=== PATIENT | male | born 1970 | race Caucasian/White ===

== ENCOUNTER 2022-09-06 06:25 | Emergency (ER) | payer OTHER, MEDICAID, SELFPAY ==
[2022-09-06] VITALS (10 sets, daily range): BP systolic 151–176; BP diastolic 89–109; PULSE 86–111; RESP 14–20; TEMP 36.4; O2SAT 93–96; BMI 22.4
--- NOTE | 2022-09-06 06:32 | DI.RAD.S_ITS ---
PROCEDURE: XR CHEST 1V INDICATIONS: eval for PNA TECHNIQUE: One view of the chest was acquired. COMPARISON: None. FINDINGS: Surgical changes and devices: None. Lungs and pleura: Lungs are clear. No pleural effusions or pneumothorax. Mediastinum: Mediastinal contours appear normal. Heart size is normal. Bones and chest wall: No suspicious bony lesions. Overlying soft tissues appear unremarkable. IMPRESSION: No acute cardiopulmonary process. Agree with preliminary report. Dictated by: Hieu Buchanan M.D. on 09/06/2022 at 7:53 Approved by: Hieu Buchanan M.D. on 09/06/2022 at 7:53
--- NOTE | 2022-09-06 07:15 | ED_ITS ---
HPI - SOB/Dyspnea General Chief Complaint: Shortness of Breath/Dyspnea Stated Complaint: possible phemonia Time Seen by Provider: 09/06/22 06:32 Source: patient Mode of arrival: Ambulatory Limitations: no limitations History of Present Illness HPI Narrative: Patient here for shortness of breath ongoing for the past 2 weeks. Patient was treated for pneumonia in [facility] about 4-5 weeks ago. Was sent home on potassium pills and 4 additional days of antibiotics. Patient states he was there about 4 days for dual treatment of alcohol withdrawal as well as pneumonia. Patient denies any previous history of heart attack strokes or diabetes or asthma or lung problems. No recent long travel or immobilization otherwise. 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 After being treated for pneumonia he was discharged and he came over here about 4 weeks ago to work on the boat to prepare for voids to [place]. Unknown sick contacts. 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 Has had fever and chills. No hematemesis or hemoptysis. Patient is a smoker. Blood pressure and heart rate noted. States he is had a stress test in the past and his source of tachycardia was due to arrhythmia. He was on lisinopril for blood pressure but is allergic because it caused him throat swelling, has not been on any blood pressure medications since then, 2 years ago. Denies any chest pain. No history of blood clots in legs or lungs before. Patient was arranged for follow-up in [facility] after his hospitalization but he informed them he would be here in [facility]. Related Data Previous Rx's Medication Instructions Recorded albuterol sulfate 90 mcg/actuation 2 inh inhalation QID PRN shortness 09/06/22 aerosol inhaler (Ventolin HFA) of breath or wheezing #6.7 grams amlodipine 5 mg tablet 5 mg PO DAILY #30 tabs 09/06/22 Allergies Allergy/AdvReac Type Severity Reaction Status Date / Time lisinopril Allergy Severe Anaphylaxis Verified 09/06/22 07:46 Review of Systems Review of Systems Narrative: GENERAL: Positive chills, fatigue, malaise, fever, sweats. HEENT: negative sinus pain, ear pain, sore throat RESPIRATORY: Positive dyspnea, cough CARDIOVASCULAR: negative chest pain, palpitations GASTROINTESTINAL: negative nausea, vomiting, abdominal pain : negative dysuria, frequency, hematuria MUSCULOSKELETAL: negative muscle or bony pain SKIN: negative rash, skin lesions NEUROLOGIC: negative weakness, numbness ROS Unobtainable: All systems reviewed & are unremarkable except as noted in HPI and below Patient History Social History Smoking Status: Current every day smoker Smoking Status: Current every day smoker tobacco type: cigarettes alcohol intake frequency: 3 or more drinks per day Alcohol type: beer Substance Use Type: marijuana Exam Narrative Exam Narrative: GENERAL: in no distress, not toxic not dyspneic HEAD: Normocephalic. EYES: Pupils equal round ENT: Mucous membranes moist. NECK: Trachea midline. CARDIOVASCULAR: Tachycardia with Regular rate and rhythm without murmurs RESPIRATORY: Rhonchi right base, no rales, otherwise speaking full sentences. No wheezing. Left lung clear. In no respiratory distress GASTROINTESTINAL: Abdomen soft, non-tender EXTREMITIES: No gross deformities. BACK: No flank tenderness. NEURO: AOx4. SKIN: Warm and dry PSYCH: Not anxious, is cooperative Initial Vital Signs Initial Vital Signs: Vital Signs Temperature 97.5 F L 09/06/22 06:40 Pulse Rate 110 H 09/06/22 06:40 Respiratory Rate 20 09/06/22 06:40 Blood Pressure 176/109 H 09/06/22 06:40 Pulse Oximetry 96 09/06/22 06:40 Oxygen Delivery Method 09/06/22 06:40 Course Orders Ordered: Discontinued Medications Albuterol (Albuterol 2.5 Mg/3 Ml Neb (Adult)) 2.5 mg INH NOW ONE Stop: 09/06/22 08:34 Last Admin: 09/06/22 08:40 Dose: 2.5 mg Documented By: TEOFILO Albuterol (Albuterol Hfa Prepack) 1 box MISC SEEINSTR ONE Stop: 09/06/22 08:34 Last Admin: 09/06/22 08:40 Dose: 1 box Documented By: TEOFILO Amlodipine Besylate (Amlodipine 5 Mg Tablet) 5 mg PO NOW ONE Stop: 09/06/22 07:29 Last Admin: 09/06/22 08:08 Dose: 5 mg Documented By: ROSALINDA Sodium Chloride (Normal Saline 0.9%) 500 mls @ 1,000 mls/hr IV BOLUS ONE Stop: 09/06/22 09:04 Last Infusion: 09/06/22 10:42 Dose: 0 mls/hr Documented By: Admin: 09/06/22 08:39 Dose: 1,000 mls/hr Documented By: ROSALINDA Vital Signs Vital signs: Vital Signs - 8 hr 09/06/22 06:40 09/06/22 06:41 09/06/22 07:00 Temperature 97.5 F L Pulse Rate 110 H 111 H 101 H Respiratory Rate 20 Blood Pressure 176/109 H Pulse Oximetry 96 96 94 Oxygen Delivery Method Room Air 09/06/22 07:42 09/06/22 07:42 09/06/22 08:00 Temperature Pulse Rate 95 H Respiratory Rate Blood Pressure 151/98 H 154/96 H Pulse Oximetry 96 Oxygen Delivery Method 09/06/22 08:00 09/06/22 08:40 09/06/22 08:30 Temperature Pulse Rate 90 89 Respiratory Rate 14 Blood Pressure 166/101 H Pulse Oximetry 96 94 Oxygen Delivery Method Room Air 09/06/22 08:30 09/06/22 09:00 09/06/22 09:00 Temperature Pulse Rate 86 92 H Respiratory Rate 18 18 Blood Pressure 169/98 H Pulse Oximetry 95 94 Oxygen Delivery Method 09/06/22 09:30 09/06/22 09:30 09/06/22 10:00 Temperature Pulse Rate 90 Respiratory Rate 18 Blood Pressure 154/99 H 159/89 H Pulse Oximetry 93 Oxygen Delivery Method 09/06/22 10:00 Temperature Pulse Rate 92 H Respiratory Rate 17 Blood Pressure Pulse Oximetry 93 Oxygen Delivery Method MDM - SOB/Dyspnea Lab Data 09/06/22 07:15 09/06/22 07:15 Labs: Lab Results 09/06/22 09/06/22 09/06/22 Range/Units 07:15 07:15 07:15 WBC 9.0 (4.5-11.0) X10^3/uL RBC 4.91 (4.5-5.9) X10^6/uL Hgb 17.7 H (13.5-17.5) g/dL Hct 49.6 (41-53) % MCV 101.0 H (80-100) fL MCH 36.0 H (26-34) PG MCHC 35.7 (30-36) % RDW 13.0 (11.6-14.8) % Plt Count 168 (150-400) X10^3/uL Neut % (Auto) 62.6 (50-75) % Lymph % (Auto) 27.2 (25-40) % Scott % (Auto) 7.7 (3-14) % Eos % (Auto) 1.9 L (2-4) % Baso % (Auto) 0.6 (0-2) % Neut # (Auto) 5600 (7803-7624) /uL Lymph # (Auto) 2500 (8053-7429) /uL Scott # (Auto) 700 (0-900) /uL Eos # (Auto) 200 (0-450) /uL Baso # (Auto) 100 (0-100) /uL Sodium 137 (137-145) mmol/L Potassium 3.7 (3.4-5.1) mmol/L Chloride 99 (98-107) mmol/L Carbon Dioxide 29 (22-32) mmol/L BUN 14 (9-20) mg/dL Creatinine 0.64 L (0.66-1.25) mg/dL Estimated GFR > 60 (>60) mL/min BUN/Creatinine Ratio 21.9 (6-22) Glucose 128 H (70-100) mg/dL Lactate (0.7-2.1) mmol/L Calcium 9.2 (8.4-10.2) mg/dL Total Bilirubin 0.6 (0.2-1.3) mg/dL AST 72 H (17-59) IU/L ALT 82 H (<50) IU/L Alkaline Phosphatase 79 (38-126) U/L Total Creatine Kinase 46 L (55-170) U/L CK-MB (CK-2) TNP CK-MB (CK-2) Rel Index TNP Troponin I < 0.012 (0.01-0.034) ng/mL NT-Pro-B Natriuret Pep 77 (<125) pg/mL Total Protein 7.7 (6.3-8.2) g/dL Albumin 4.2 (3.5-5.0) g/dL Globulin 3.5 (1.7-4.1) g/dL Albumin/Globulin Ratio 1.2 (1.0-2.8) Procalcitonin (<0.5) ng/mL Chlamy pneumoniae PCR (Not Detect) Adenovirus (PCR) (Not Detect) B. pertussis DNA (PCR) (Not Detecte) B.parapertussis DNA PCR (Not Detecte) Coronavirus OC43 (PCR) (Not Detect) Coronavirus HKU1 (PCR) (Not Detect) Coronavirus 229E (PCR) (Not Detect) SARS-CoV-2 (PCR) (Not Detecte) Coronavirus NL63 (PCR) (Not Detect) Human Metapneumovir PCR (Not Detect) Influenza Type A (PCR) (Not Detect) Influenza Type B (PCR) (Not Detect) M. pneumoniae (PCR) (Not Detect) Parainfluenza 1 (PCR) (Not Detect) Parainfluenza 2 (PCR) (Not Detect) Parainfluenza 3 (PCR) (Not Detect) Parainfluenza 4 (PCR) (Not Detect) RSV (PCR) (Not Detect) Entero/Rhino (PCR) (Not Detect) 09/06/22 09/06/22 09/06/22 Range/Units 07:15 07:15 07:15 WBC (4.5-11.0) X10^3/uL RBC (4.5-5.9) X10^6/uL Hgb (13.5-17.5) g/dL Hct (41-53) % MCV (80-100) fL MCH (26-34) PG MCHC (30-36) % RDW (11.6-14.8) % Plt Count (150-400) X10^3/uL Neut % (Auto) (50-75) % Lymph % (Auto) (25-40) % Scott % (Auto) (3-14) % Eos % (Auto) (2-4) % Baso % (Auto) (0-2) % Neut # (Auto) (2907-2035) /uL Lymph # (Auto) (7964-3334) /uL Scott # (Auto) (0-900) /uL Eos # (Auto) (0-450) /uL Baso # (Auto) (0-100) /uL Sodium (137-145) mmol/L Potassium (3.4-5.1) mmol/L Chloride (98-107) mmol/L Carbon Dioxide (22-32) mmol/L BUN (9-20) mg/dL Creatinine (0.66-1.25) mg/dL Estimated GFR (>60) mL/min BUN/Creatinine Ratio (6-22) Glucose (70-100) mg/dL Lactate 1.2 (0.7-2.1) mmol/L Calcium (8.4-10.2) mg/dL Total Bilirubin (0.2-1.3) mg/dL AST (17-59) IU/L ALT (<50) IU/L Alkaline Phosphatase (38-126) U/L Total Creatine Kinase (55-170) U/L CK-MB (CK-2) CK-MB (CK-2) Rel Index Troponin I (0.01-0.034) ng/mL NT-Pro-B Natriuret Pep (<125) pg/mL Total Protein (6.3-8.2) g/dL Albumin (3.5-5.0) g/dL Globulin (1.7-4.1) g/dL Albumin/Globulin Ratio (1.0-2.8) Procalcitonin 0.07 (<0.5) ng/mL Chlamy pneumoniae PCR Not detected (Not Detect) Adenovirus (PCR) Not detected (Not Detect) B. pertussis DNA (PCR) Not detected (Not Detecte) B.parapertussis DNA PCR Not detected (Not Detecte) Coronavirus OC43 (PCR) Not detected (Not Detect) Coronavirus HKU1 (PCR) Not detected (Not Detect) Coronavirus 229E (PCR) Not detected (Not Detect) SARS-CoV-2 (PCR) Not detected (Not Detecte) Coronavirus NL63 (PCR) Not detected (Not Detect) Human Metapneumovir PCR Not detected (Not Detect) Influenza Type A (PCR) Not detected (Not Detect) Influenza Type B (PCR) Not detected (Not Detect) M. pneumoniae (PCR) Not detected (Not Detect) Parainfluenza 1 (PCR) Not detected (Not Detect) Parainfluenza 2 (PCR) Not detected (Not Detect) Parainfluenza 3 (PCR) Not detected (Not Detect) Parainfluenza 4 (PCR) Not detected (Not Detect) RSV (PCR) Not detected (Not Detect) Entero/Rhino (PCR) Not detected (Not Detect) Imaging Data Chest x-ray: Radiologist's Impression: [address] [address] XRay Report Signed Patient: Shashank Byrd MR#: [id number] : 1970 Acct:[id number] Age/Sex: 52 / M Date of Service: 09/06/22 Loc: ED Accession Number: [id number] ?? Procedure: XR chest 1V Ordering Provider: Ady Laura D.O. PROCEDURE:? XR CHEST 1V ? INDICATIONS:? eval for PNA ? TECHNIQUE:? One view of the chest was acquired.? ? COMPARISON:? None. ? FINDINGS:? ? Surgical changes and devices:? None.? ? Lungs and pleura:? Lungs are clear.? No pleural effusions or pneumothorax.? ? Mediastinum:? Mediastinal contours appear normal.? Heart size is normal.? ? Bones and chest wall:? No suspicious bony lesions.? Overlying soft tissues appea r unremarkable.? ? IMPRESSION:? No acute cardiopulmonary process. ? Agree with preliminary report.? ? ? Dictated by: Hieu Buchanan M.D. on 09/06/2022 at 7:53 ? ? Approved by: Hieu Buchanan M.D. on 09/06/2022 at 7:53 ? CT scan - chest: Radiologist's Impression: [address] [address] [address] Scan Report Signed Patient: Shashank Byrd MR#: [id number] : 1970 Acct:[id number] Age/Sex: 52 / M Date of Service: 09/06/22 Loc: ED Accession Number: [id number] ?? Procedure: CT angio chest PE protocol Ordering Provider: Alejandro Evans MD PROCEDURE:? CT ANGIO CHEST PE PROTOCOL ? INDICATIONS:? shortness of breath ? TECHNIQUE:? After the administration of intravenous contrast, 2 mm thick sections acquired from the pulmonary apices to the posterior costophrenic angles.? 3-dimensional maximum intensity projection (MIP) coronal and sagittal reformats were then acquired through the thorax.? For radiation dose reduction, the following was used:? automated exposure control, adjustment of mA and/or kV according to patient size.? ? COMPARISON:? None. ? FINDINGS:? Image quality:? Excellent.? ? Pulmonary arteries:? Pulmonary arteries are mild prominent in size, and demonstrate no intraluminal filling defects to suggest central pulmonary embolism.? ? Lungs and pleura:? There is no acute airspace opacity.? A few scattered atelectasis in periphery of bilateral lung villalobos are seen.? No pleural effusions or pne umothorax.? Central and peripheral airways are patent.? ? Mediastinum:? Heart size is normal, without pericardial effusion.? No mediastinal or hilar adenopathy.? Ectasias of ascending thoracic aorta measures up to 4 cm in largest AP diameter.? No aortic dissection.? Esophagus is normal in caliber, without hiatal hernia.? ? ? Bones and chest wall:? No suspicious bony lesions.? Ribs and thoracic spine appear intact throughout.? Right thyroid lobe is asymmetrically enlarged with heterogeneous enhancement suggestive of nodular goiter.? No axillary or supraclavicular adenopathy.? Subcentimeter lymph nodes are seen in bilateral axilla and measures up to 8 mm in short axis diameter in left axilla. ? Abdomen:? Visualized upper abdominal solid organs appear normal in the early arterial phase of enhancement.? ? IMPRESSION:? 1. No evidence of pulmonary emboli.? Mild prominence of main pulmonary artery which can be seen in the case of pulmonary vascular hypertension. ? 2. Ectasias/borderline ascending thoracic aortic aneurysm measures up to 4 cm in largest AP diameter.? No aortic dissection. ? 3.? Scattered atelectasis in periphery of bilateral lung villalobos.? No focal infiltrate, pleural effusion or pneumothorax. ? 4. Subcentimeter lymph nodes seen in bilateral axilla and mediastinum.? No lymphadenopathy is noted by size criteria.? ? ? Dictated by: Esvin Goodwin M.D. on 09/06/2022 at 8:03 ? ? Approved by: Esvin Goodwin M.D. on 09/06/2022 at 8:12 ? MDM Narrative Medical decision making narrative: Patient here for shortness of breath ongoing for the past 2 weeks. Patient was treated for pneumonia in [facility] about 4-5 weeks ago. Was sent home on potassium pills and 4 additional days of antibiotics. Patient states he was there about 4 days for dual treatment of alcohol withdrawal as well as pneumonia. Patient denies any previous history of heart attack strokes or diabetes or asthma or lung problems. No recent long travel or immobilization otherwise. 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 After being treated for pneumonia he was discharged and he came over here about 4 weeks ago to work on the boat to prepare for voids to [place]. Unknown sick contacts. 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 Has had fever and chills. No hematemesis or hemoptysis. Patient is a smoker. Blood pressure and heart rate noted. States he is had a stress test in the past and his source of tachycardia was due to arrhythmia. He was on lisinopril for blood pressure but is allergic because it caused him throat swelling, has not been on any blood pressure medications since then, 2 years ago. Denies any chest pain. No history of blood clots in legs or lungs before. Patient was arranged for foll ow-up in [facility] after his hospitalization but he informed them he would be here in [facility]. After history and exam CBC CMP lactic acid procalcitonin CT chest PE protocol EKG troponin BNP have been ordered. MDM CC: Shortness of breath Complicating co-morbidities: Recent pneumonia/smoker Data collected from: Patient Medical records reviewed: Trying to obtain records from [facility] discharge summary Differential considered: Includes but not limited to pulmonary embolism/pneumonia/CHF/pericardial effusion/atypical pneumonia/COPD/asthma Exam documented above, pertinent findings include: Rhonchi/coarse lung sounds right base/tachycardia/hypertension, Lab Test results independently reviewed as above. Pertinent findings: CBC without leukocytosis, white cell count 9.0 hemoglobin 17.7 platelets 168, CMP sodium 137 AST 72 ALT 82, troponin less than 0.012 BNP 77, lactic acid 1.2 Independently reviewed EKG as above normal sinus rhythm normal EKG rate [address] elevation or depression Imaging studies independently reviewed: Chest x-ray no acute process,CTA chest PE protocol, no pulmonary embolism, there is a 4 cm thoracic aneurysm but no dissection. There is atelectasis but no infiltrate Consults: 12:14 p.m.. Spoke with [facility] Cardioth[facility]acic surgery, dr martins, he has reviewed the CT scan imaging. Recommends outpatient follow-up for echocardiogram with primary care, I did give patient primary care referral, will need annual CT chest. Does not need to be transferred for this finding, does not need to follow up with their clinic at this time, no urgent echocardiogram today. Blood pressure control was obtained here as he recommended. And prescription as well. Treatments: Albuterol/normal saline/Norvasc Re-evaluations: Blood pressure 159/89. Feels better after breathing treatment, pulse 89, vital signs have improved with Norvasc. Reviewed with patient, he does not want to wait for vascular surgery [facility] call back. He feels better after breathing treatments. Primary care referral given. Not toxic at discharge. Return precautions reviewed with him. Reviewed with him possibly developed COPD or asthma. No antibiotics indicated at this time. Discussion: Appropriate for discharge home. Blood pressure and heart rate have improved. Feels better after breathing treatment. Prescription for albuterol as well as Norvasc provided. Primary care referral given. Patient did not want to wait for vascular surgery to call back. Not toxic at discharge. Return precautions reviewed with him. He desires discharge home. I did speak with vascular surgeon, he called backs hours after patient being discharged. Please see note above. Diagnosis: Dyspnea Discharge Plan Departure Patient Disposition: Home Clinical Impression: Dyspnea Instructions: DI for Shortness of Breath Activity Restrictions/Additional Instructions: Please call [facility] regarding findings on the CT scan of your aorta today for re-evaluation. Their vascular surgery Department did not call back at time of discharge. Please do call them as you have seen [facility] providers in the past for other reasons. At this time this does not seem to be the source of your problems today. Please do stop smoking. Use inhaler 2 puffs every 4 hours as needed for shortness of breath. Please do continue blood pressure medication provided for you today. See family doctor in a week for re-evaluation. Call provided primary care referral phone number to establish family doctor. Call [phone] Prescriptions: New amlodipine 5 mg tablet 5 mg PO DAILY Qty: 30 0RF albuterol sulfate [Ventolin HFA] 90 mcg/actuation HFA aerosol inhaler 2 inh inhalation QID PRN (Reason: shortness of breath or wheezing) Qty: 6.7 0RF Stand Alone Forms: Patient Portal/API
[2022-09-06 07:31] LABS: Add Manual Diff / Slide Review NO; Basophils Absolute Auto 100 /uL (0-100); Basophils Percent Auto 0.6 % (0-2); Eosinophils Absolute Auto 200 /uL (0-450); Eosinophils Percent Auto 1.9 % (2-4); Hematocrit 49.6 % (41-53); Hemoglobin 17.7 g/dL (13.5-17.5); Lymphocytes Absolute Auto 2500 /uL (1100-4500); Lymphocytes Percent Auto 27.2 % (25-40); Mean Corpuscular HGB Conc 35.7 % (30-36); Monocytes Absolute Auto 700 /uL (0-900); Monocytes Percent Auto 7.7 % (3-14); Neutrophils Absolute Auto 5600 /uL (1500-7000); Neutrophils Percent Auto 62.6 % (50-75); Platelet Count 168 X10^3/uL (150-400); Red Blood Cell Count 4.91 X10^6/uL (4.5-5.9)
--- NOTE | 2022-09-06 07:37 | DI.CT.S_ITS ---
PROCEDURE: CT ANGIO CHEST PE PROTOCOL INDICATIONS: shortness of breath TECHNIQUE: After the administration of intravenous contrast, 2 mm thick sections acquired from the pulmonary apices to the posterior costophrenic angles. 3-dimensional maximum intensity projection (MIP) coronal and sagittal reformats were then acquired through the thorax. For radiation dose reduction, the following was used: automated exposure control, adjustment of mA and/or kV according to patient size. COMPARISON: None. FINDINGS: Image quality: Excellent. Pulmonary arteries: Pulmonary arteries are mild prominent in size, and demonstrate no intraluminal filling defects to suggest central pulmonary embolism. Lungs and pleura: There is no acute airspace opacity. A few scattered atelectasis in periphery of bilateral lung villalobos are seen. No pleural effusions or pneumothorax. Central and peripheral airways are patent. Mediastinum: Heart size is normal, without pericardial effusion. No mediastinal or hilar adenopathy. Ectasias of ascending thoracic aorta measures up to 4 cm in largest AP diameter. No aortic dissection. Esophagus is normal in caliber, without hiatal hernia. Bones and chest wall: No suspicious bony lesions. Ribs and thoracic spine appear intact throughout. Right thyroid lobe is asymmetrically enlarged with heterogeneous enhancement suggestive of nodular goiter. No axillary or supraclavicular adenopathy. Subcentimeter lymph nodes are seen in bilateral axilla and measures up to 8 mm in short axis diameter in left axilla. Abdomen: Visualized upper abdominal solid organs appear normal in the early arterial phase of enhancement. IMPRESSION: 1. No evidence of pulmonary emboli. Mild prominence of main pulmonary artery which can be seen in the case of pulmonary vascular hypertension. 2. Ectasias/borderline ascending thoracic aortic aneurysm measures up to 4 cm in largest AP diameter. No aortic dissection. 3. Scattered atelectasis in periphery of bilateral lung villalobos. No focal infiltrate, pleural effusion or pneumothorax. 4. Subcentimeter lymph nodes seen in bilateral axilla and mediastinum. No lymphadenopathy is noted by size criteria. Dictated by: Esvin Goodwin M.D. on 09/06/2022 at 8:03 Approved by: Esvin Goodwin M.D. on 09/06/2022 at 8:12
[2022-09-06 07:49] LABS: Lactate (Lactic Acid) 1.2 mmol/L (0.7-2.1)
[2022-09-06 07:50] LABS: Alanine Aminotransferase 82 IU/L (<50); Albumin 4.2 g/dL (3.5-5.0); Albumin Globulin Ratio 1.2 (1.0-2.8); Alkaline Phosphatase 79 U/L (38-126); Aspartate Aminotransferase 72 IU/L (17-59); BUN Creatinine Ratio 21.9 (6-22); Bilirubin Total 0.6 mg/dL (0.2-1.3); Blood Urea Nitrogen 14 mg/dL (9-20); Calcium 9.2 mg/dL (8.4-10.2); Carbon Dioxide 29 mmol/L (22-32); Chloride 99 mmol/L (98-107); Creatine Kinase 46 U/L (55-170); Estimated Glomerular Filt Rate > 60 mL/min (>60); Globulin 3.5 g/dL (1.7-4.1); Glucose 128 mg/dL (70-100); Potassium 3.7 mmol/L (3.4-5.1); Sodium 137 mmol/L (137-145); Total Protein 7.7 g/dL (6.3-8.2)
[2022-09-06 07:52] LABS: HEMOLYSIS 54 (0-50)
[2022-09-06 07:59] LABS: NT-proBNP (BNP-Adult 18+) 77 pg/mL (<125)
[2022-09-06 08:01] LABS: Troponin I < 0.012 ng/mL (0.01-0.034)
[2022-09-06 08:07] LABS: Procalcitonin 0.07 ng/mL (<0.5)
[2022-09-06] MEDS: AMLODIPINE 5 MG TABLET PO (08:08)
[2022-09-06 08:26] LABS: Adenovirus Not Detected (Not Detect); B. parapertussis Not Detected (Not Detecte); Bordetella pertussis Not Detected (Not Detecte); Chlamydophila pneumoniae Not Detected (Not Detect); Coronavirus 229E Not Detected (Not Detect); Coronavirus HKU1 Not Detected (Not Detect); Coronavirus NL 63 Not Detected (Not Detect); Coronavirus OC43 Not Detected (Not Detect); Human Metapneumovirus Not Detected (Not Detect); Human Rhinovirus/Enterovirus Not Detected (Not Detect); Influenza A Not Detected (Not Detect); Influenza B Not Detected (Not Detect); Mycoplasma pneumoniae Not Detected (Not Detect); Parainfluenza Virus 1 Not Detected (Not Detect); Parainfluenza Virus 2 Not Detected (Not Detect); Parainfluenza Virus 3 Not Detected (Not Detect); Parainfluenza Virus 4 Not Detected (Not Detect); Respiratory Syncytial Virus Not Detected (Not Detect); SARS- CoV-2 Not Detected (Not Detecte)
[2022-09-06] MEDS: SODIUM CHLORIDE 0.9% 500 ML 1000 ML IV (08:39)
[2022-09-06] MEDS: ALBUTEROL 2.5 MG/3 ML NEB (ADULT) INH (08:40)
[2022-09-06] MEDS: ALBUTEROL HFA PREPACK 1 BOX MISC (08:40)
== END 2022-09-06 10:43 | disposition home or self-care (01) ==
PROVIDERS: Emergency Provider Emergency Medicine
DX: R06.00 Dyspnea, unspecified (principal); R79.89 Other specified abnormal findings of blood chemistry; Z20.822 Contact with and (suspected) exposure to COVID-19
CPT/HCPCS: 36415; 71045; 71275; 80053; 82550; 83605; 83880; 84145; 84484; 85025; 87633; 93005; 93010; 94640; 99284; J7613; Q9967

== ENCOUNTER 2022-11-03 17:45 | Emergency (ER) | payer OTHER, MEDICAID, SELFPAY ==
[2022-11-03 17:47] VITALS: BP 179/112; PULSE 103; RESP 18; TEMP 37.3; O2SAT 98; BMI 23.7
[2022-11-03] MEDS: PROPARACAINE 0.5% OPHTH SOL 1 DROPS EYE-BOTH ×2 (18:03→18:19)
--- NOTE | 2022-11-03 18:05 | ED_ITS ---
HPI - Eye Problem General Chief complaint: Eye Problems Stated complaint: Something in eye Time Seen by Provider: 11/03/22 18:05 Source: patient Mode of arrival: Ambulatory Limitations: no limitations History of Present Illness HPI Narrative: This is a 52-year-old male with history of traumatic brain injury prior craniotomy and hypertension. Patient states he got something in his eye he states initially seemed to just be the left eye yesterday was painful for about an hour and then improved. And then he states it returned today about an hour ago. Patient was has been working with sheet metal. He has been wearing safety glasses and visor. He notes that other individuals were waddling but he was trying to make sure that he looked away he did not think that he had any exposure from that. He states sort of scratchy, itchy and painful. He normally has double vision in the left eye that has not changed but he has a little bit more blurred on the left. He also started to notice some right eye irritation while he was here. He is had some tearing. He denies any purulent drainage. No cold, cough congestion, no fevers or chills. He states his eyes feel uncomfortable. There is some photophobia. Patient states amlodipine as his only medication. Patient states prior surgeries or craniotomy and he did have sounds like an orbital fracture on the left but has not had any surgery on the globe. He states he is allergic to lisinopril. He does not wear glasses or contacts. He does not know if his tetanus is up-to-date. Related Data Previous Rx's Medication Instructions Recorded albuterol sulfate 90 mcg/actuation 2 inh inhalation QID PRN shortness 09/06/22 aerosol inhaler (Ventolin HFA) of breath or wheezing #6.7 grams amlodipine 5 mg tablet 5 mg PO DAILY #30 tabs 09/06/22 hydrocodone 5 mg-acetaminophen 325 1 tab PO Q6H PRN pain #7 tabs 11/03/22 mg tablet polymyxin B sulfate 10,000 2 drp EYE-BOTH QID 7 days #10 mL 11/03/22 unit-trimethoprim 1 mg/mL eye drops (Polytrim) polymyxin B sulfate 10,000 2 drp EYE-BOTH QID 7 days #10 mL 11/03/22 unit-trimethoprim 1 mg/mL eye drops (Polytrim) Allergies Allergy/AdvReac Type Severity Reaction Status Date / Time lisinopril Allergy Severe Anaphylaxis Verified 11/03/22 17:51 Review of Systems Review of Systems ROS Unobtainable: All systems reviewed & are unremarkable except as noted in HPI and below Patient History Social History Smoking Status: Current every day smoker Smoking Status: Current every day smoker tobacco type: cigarettes alcohol intake frequency: 0-2 drinks per day Alcohol type: beer Substance Use Type: does not use Exam Narrative Exam Narrative: GEN: well nourished, well appearing male, alert and oriented x 3, patient appears to be in mild distress. HEENT: Atraumatic, pupils are equal round reactive to light, extraocular movements are intact, no purulent drainage, nares are clear, there is no conjunctival pallor. Visual acuity: right [20/25], left 20/50 without correction. IOP: Right 20 mm Hg, Left 20 mm Hg General: no globe trauma Eyelids: normal inspection, eyelids everted for exam on bilaterally, patient has small amount material on the edges of his lashes which was removed with Q-tip but none appreciated within the eye itself on the inner eyelid. Conjunctiva/Sclera: Conjunctivae and sclerae are injected bilaterally. Corneas: normal inspection, examined with fluroscein on bilaterally. Patient does not have any uptake over the cornea but does have streaky punctate uptake bilateral sclerae. EOM: intact, no palsy/entrapment Pupils: PERRL, normal accomadation, pupil normal Anterior Chambers: normal inspection, no hypema Posterior: normal fundoscopic on bilaterally Throat is clear without any exudates, erythema, tonsillar enlargement or uvular deviation HEART: Regular rate and rhythm without murmur, clicks, rubs. No carotid bruits, pulses are equal in upper and lower extremities LUNGS:Lungs clear to auscultation, no wheezes, rales, crackles, chest moves symmetrically ABD:bowel sounds normal, soft, non-tender, no guarding, rebound, rigidity, no masses noted, no hepatosplenomegaly MSCL: Non-tender, full range of motion, normal gait NEURO:CN 2-12 intact, sensation normal SKIN: No rash, erythema or other skin changes Initial Vital Signs Initial Vital Signs: Vital Signs Temperature 99.2 F 11/03/22 17:47 Pulse Rate 103 H 11/03/22 17:47 Respiratory Rate 18 11/03/22 17:47 Blood Pressure 179/112 H 11/03/22 17:47 Pulse Oximetry 98 11/03/22 17:47 Oxygen Delivery Method Room Air 11/03/22 17:47 Course Orders Ordered: Discontinued Medications Diphtheria/Tetanus/Acell Pertussis (Tet,Diph,Pertuss(Acell),Vac/Pf 0.5 Ml Syringe) 0.5 ml IM .ONCE ONE Stop: 11/03/22 18:00 Last Admin: 11/03/22 18:20 Dose: 0.5 ml Documented By: OMID Erythromycin (Erythromycin Ophth 1 Gm Oint) 1 applic EYE-BOTH NOW ONE Stop: 11/03/22 19:17 Last Admin: 11/03/22 19:20 Dose: 1 applic Documented By: UMA Fluorescein Sodium (Fluorescein 1 Mg Strip) 1 mg EYE-BOTH NOW ONE Stop: 11/03/22 18:13 Last Admin: 11/03/22 18:19 Dose: 1 mg Documented By: OMID Proparacaine HCl (Proparacaine 0.5% Ophth Joanna) 1 drops EYE-BOTH PRN PRN PRN Reason: eye pain Stop: 11/04/22 12:00 Last Admin: 11/03/22 18:19 Dose: 1 drops Documented By: Admin: 11/03/22 18:03 Dose: 1 drops Documented By: UMA Vital Signs Vital signs: Vital Signs - 8 hr 11/03/22 17:47 Temperature 99.2 F Pulse Rate 103 H Respiratory Rate 18 Blood Pressure 179/112 H Pulse Oximetry 98 Oxygen Delivery Method Room Air MDM - Eye Problem MDM Narrative Medical decision making narrative: This is a 52-year-old male with complaint of bilateral eye irritation and tearing patient states it started with the left eye yesterday. 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 He thought that maybe he would gotten something in his eye he did wash it out got better after an hour and then got worse today again. He states now the right eye is starting to bother him as well. He is had tearing but no purulent drainage. He does not wear contacts he does sometimes use readers. He states tetanus is not up-to-date. He was wearing eye protection including a visor safety goggles. Patient has history significant for prior craniotomy and surgery around the left eye orbit for traumatic injury, intracranial bleed and facial fractures about 30-31 years ago. Patient states he has persistent and chronic double vision on the left. He has had some slight blurring today more on the left but otherwise has not had other eye changes. Patient's exam has sort of punctate uptake throughout the sclera but not over the cornea, no foreign bodies appreciated eyelids were flipped bilaterally, patient had particular matter on the lashes I suspect that this is what has been irritating his eyes but none are noted actually within the eye or under the lids and there are no lacerations or abrasions consistent with foreign body none was appreciated on exam. Patient has a lot of small particularly manner along the lashes but none within the creases or underneath the eyelids. There is no linear abrasions or scratches or ulcerations or foreign body appreciated. Patient started on antibiotics referral to Ophthalmology for follow-up and return precautions. Discharge Plan Departure Patient Disposition: Home Clinical Impression: Conjunctivitis Instructions: DI for Conjunctivitis Activity Restrictions/Additional Instructions: Please follow-up with ophthalmology if your symptoms are persisting, referral is included. Use erythromycin ointment 1/2 inch strip twice daily. Prescription for antibiotic eye drops was sent to [facility]. Use these until completed after 7 days. There is also prescription for narcotic pain medication, you may take 1-2 tablets every 6 hours as needed. This medication can make you sleepy do not drive, perform hazardous activities or make any major decisions while taking it. This medication will make you constipated please take a stool softener once to twice daily until stools are soft and regular. Please return for rapidly worsening symptoms, loss of vision or decreasing vision, increasing swelling of her eyes, severe pain, difficulty with movement, new swelling of her face, eyelids or other new or concerning changes. Prescriptions: New polymyxin B sulf-trimethoprim [Polytrim] 10,000 unit- 1 mg/mL drops 2 drp EYE-BOTH QID 7 Days Qty: 10 0RF hydrocodone-acetaminophen 5-325 mg tablet 1 tab PO Q6H PRN (Reason: pain) Qty: 7 0RF polymyxin B sulf-trimethoprim [Polytrim] 10,000 unit- 1 mg/mL drops 2 drp EYE-BOTH QID 7 Days Qty: 10 0RF No Action amlodipine 5 mg tablet 5 mg PO DAILY Qty: 30 0RF albuterol sulfate [Ventolin HFA] 90 mcg/actuation HFA aerosol inhaler 2 inh inhalation QID PRN (Reason: shortness of breath or wheezing) Qty: 6.7 0RF Referrals: Unruly Vann MD [Physician] - Stand Alone Forms: Patient Portal/API
[2022-11-03] MEDS: FLUORESCEIN 1 MG STRIP EYE-BOTH (18:19)
[2022-11-03] MEDS: TET,DIPH,PERTUSS(ACELL),VAC/PF 0.5 ML SYRINGE IM (18:20)
[2022-11-03 19:13] VITALS: PULSE 91; O2SAT 97
[2022-11-03 19:14] VITALS: BP 162/96; PULSE 93; RESP 20; O2SAT 95
[2022-11-03] MEDS: ERYTHROMYCIN OPHTH 1 GM OINT 1 APPLIC EYE-BOTH (19:20)
== END 2022-11-03 19:25 | disposition home or self-care (01) ==
PROVIDERS: Emergency Provider Emergency Medicine
DX: H10.9 Unspecified conjunctivitis (principal); Z23 Encounter for immunization
CPT/HCPCS: 90471; 99283; 90715